=== PATIENT | female | born 1945 | race Caucasian/White ===

== ENCOUNTER 2020-10-13 10:30 | Inpatient (IN) | payer MEDICARE, OTHER ==
--- NOTE | 2020-10-13 10:48 | XRAY ---
Indication: Weakness, dizziness, and blurred vision. Stroke. Multiple contiguous axial images obtained through the head without contrast. Comparison: None Age-appropriate global atrophy. No acute intracranial hemorrhage, abnormal extra-axial fluid collection, or mass effect. Fourth ventricle is midline without hydrocephalus. Mckinney-white matter differentiation is preserved. Fourth ventricle is midline without hydrocephalus. Bony calvarium intact. Visualized paranasal sinuses and mastoid air cells are clear. Impression: Atrophy and degenerative micro-ischemia within normal limits. No acute intracranial abnormalities. Follow up CT or MRI may yield further information if there remains clinical concern.
[2020-10-13 11:01] LABS: Absolute Neutrophil Ct (ANC) 6.06 (1.4-6.9); BASOPHIL % 0.1 % (0.0-0.4); Basophil (Absolute #) 0.01 (0-0.4); Eosinophil % 0.7 % (0.00-5.0); Eosinophil (Absolute #) 0.06 (0-0.5); Hematocrit 38.2 % (35-47); Hemoglobin 12.1 gm/dl (12.0-16.0); Lymphocytes % 20.5 % (24.0-44.0); Mean Cell Volume 90.7 fl (78-100); Mean Corpuscular Hemoglobin 28.7 pg (26-32); Mean Corpuscular Hgb Concent. 31.7 g/dl (32-36); Monocyte (Absolute #) 0.45 (0.0-1.3); Monocytes % 5.4 % (0.0-12.0); Neutrophil % 73.3 % (36.0-66.0); Platelet Count 266 K/mm3 (150-450); Red Blood Count 4.21 M/mm3 (4.1-5.4); Red Cell Distribution Width 13.1 % (11.5-14.0); White Blood Count 8.3 K/mm3 (4.0-10.5)
[2020-10-13 11:08] LABS: INR 1.16 (0.8-3.0); PROTIME 13.1 SECONDS (9.95-12.35)
--- NOTE | 2020-10-13 11:09 | ERPHSYRPT ---
- History of Present Illness Time Seen by Provider: 10/13/20 10:45 Source: patient Exam Limitations: no limitations Patient Subjective Stated Complaint: Pt was on her way to [employer] and she suddenly became dizzy and sat in the [place] lot for a few minutes and she tried to stand and she falls towards the left, Triage Nursing Assessment: Pt brought to the ER by a friend, hypertensive, falls to the left side when she stands, denies any numbness, denies any SOB, felt fine this AM, no edema, no facial droop, was able to lift both legs and hold but stated it was much harder for the left than the right to hold up, no difficulties with speech, denies pain Physician History: This is a 74-year-old white female who has a history of hypertension, insulin- dependent diabetes and hypothyroidism. She is a patient of Dr. Bazan. Patient states that approximately 45 minutes to an hour prior to her arrival she noticed some dizziness as well as some left-sided weakness. When she was ambulating she would lean towards the left side. She did not experiencing any kind of pain or head trauma. She has never had anything like this before. Her blood sugar upon arrival to the emergency department is 99. She denies chest pa in. She denies shortness of breath. When lying down, she does not feel weak but when she stands up to walk she continues to lean towards the left side. Timing/Duration: today, hour(s) (1) Severity: mild Character of Deficits: new weakness (Left side), other (Patient did state that there was some associated difficulty in getting her words out approximately an hour ago. This symptom had resolved by the time she had arrived to the emergency department) Deficits: cannot stand, cannot walk Baseline/Normal Cognition: alert oriented x 3 Current Cognition: alert oriented x 3 Associated Symptoms: trouble walking (Patient leaning towards the left), No headache Allergies/Adverse Reactions: insulin lispro [From Humalog] Allergy (Verified 12/27/14 09:17) ciprofloxacin [From Cipro] Adverse Reaction (Verified 12/27/14 09:17) ciprofloxacin HCl [From Cipro] Adverse Reaction (Verified 12/27/14 09:17) penicillin Adverse Reaction (Verified 12/27/14 09:17) Sulfa (Sulfonamide Antibiotics) Adverse Reaction (Verified 12/27/14 09:17) Home Medications: Anastrozole [Arimidex] 1 mg PO DAILY 12/27/14 [History] Bacillus Coagulans/Inulin [Probiotic with Prebiotic Caps] 1 cap PO DAILY 12/27/14 [History] Benazepril HCl [Lotensin] 5 mg PO HS 12/27/14 [History] Cholecalciferol (Vitamin D3) [Vitamin D] 1 tab PO DAILY 12/27/14 [History] Insulin Glargine,Hum.rec.anlog [Lantus Solostar] 60 unit SQ HS 12/27/14 [History] Insulin Glulisine [Apidra Solostar] 20 unit SQ AC 12/27/14 [History] Levothyroxine Sodium 50 Mcg [Synthroid 50 Mcg] 1 tab PO DAILY 12/27/14 [History] Metformin HCl 500 mg [Glucophage 500 MG] 1 tab PO BID 12/27/14 [History] Travel Risk - International Travel Have you traveled outside of the country in past 3 weeks: No - Coronavirus Screening Are you exhibiting any of the following symptoms?: No Close contact with a COVID-19 positive Pt in past 14-21 Days: No - Vaccine Status Have you recieved a Covid-19 vaccination: No - Review of Systems Constitutional: Weakness Eyes: No Symptoms Ears, Nose, & Throat: No Symptoms Respiratory: No Symptoms Cardiac: No Symptoms Abdominal/Gastrointestinal: No Symptoms Genitourinary Symptoms: No Symptoms Musculoskeletal: No Symptoms Skin: No Symptoms Neurological: Dizziness (Has resolved), Gait Changes Psychological: No Symptoms Endocrine: No Symptoms Hematologic/Lymphatic: No Symptoms Immunological/Allergic: No Symptoms All Other Systems: Reviewed and Negative - Past Medical History Pertinent Past Medical History: Yes Neurological History: No Pertinent History ENT History: No Pertinent History Cardiac History: Other Respiratory History: No Pertinent History Endocrine Medical History: Diabetes Type II, Hypothyroidism Musculoskeletal History: No Pertinent History GI Medical History: Colitis, Polyps History: No Pertinent History Psycho-Social History: No Pertinent History Female Reproductive Disorders: Breast Cancer Other Medical History: mirtal valve prolaps, colitis as a child - Past Surgical History Past Surgical History: Yes Neuro Surgical History: No Pertinent History Cardiac: Cardiac Catheterization Respiratory: No Pertinent History Gastrointestinal: No Pertinent History Genitourinary: No Pertinent History Musculoskeletal: No Pertinent History Female Surgical History: Mastectomy, Tubal Ligation Other Surgical History: left mastectomy in 2011 - Social History Smoking Status: Never smoker Exposure to second hand smoke: No Drug Use: none Patient Lives Alone: Yes - Nursing Vital Signs Nursing Vital Signs: Initial Vital Signs Temperature 98.3 F 10/13/20 10:41 Pulse Rate 69 10/13/20 10:41 Blood Pressure 147/61 10/13/20 10:41 O2 Sat by Pulse Oximetry 97 10/13/20 10:41 Pain Scale Pain Intensity 0 - Beatrice Coma Scale Best Eye Response (Beatrice): (4) open spontaneously Best Verbal Response (Millie): (5) oriented Best Motor Response (Beatrice): (6) obeys commands Millie Total: 15 - Physical Exam General Appearance: no apparent distress, alert, anxiety Eye Exam: bilateral eye: normal inspection, PERRL, EOMI Ears, Nose, Throat Exam: normal ENT inspection, moist mucous membranes Neck Exam: normal inspection, non-tender, supple, full range of motion Respiratory: normal breath sounds, lungs clear, airway intact, No chest tenderness, No respiratory distress Cardiovascular: regular rate/rhythm, normal heart sounds, normal peripheral pulses Gastrointestinal: soft, normal bowel sounds, No tenderness Pelvic Exam: not done Rectal Exam: not done Back Exam: normal inspection, normal range of motion, No CVA tenderness, No vertebral tenderness Extremity Exam: normal inspection, normal range of motion, pelvis stable Mental Status: alert, 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 No comparison EKG available.) Ordered Tests: Active Orders 24 hr Category Date Time Status [place] Bottom Maker STAT Care 10/13/20 10:53 Active EKG-ER Only STAT Care 10/13/20 10:52 Active NPO (ED) STAT Care 10/13/20 10:52 Active Pulse Oximetry (ED) STAT Care 10/13/20 10:52 Active HEAD WITHOUT CONTRAST [CT] Stat Exams 10/13/20 10:31 Completed MRI BRAIN W & W/O CONTRAST [MRI] Stat Exams 10/13/20 10:54 Completed CBC W DIFF Stat Lab 10/13/20 10:54 Completed CMP Stat Lab 10/13/20 10:54 Completed PROTIME WITH INR Stat Lab 10/13/20 10:54 Completed T4 (Thyroxine) Stat Lab 10/13/20 Completed TSH [TSH, 3RD Generation] Stat Lab 10/13/20 11:03 Completed UA W/RFX UR CULTURE Stat Lab 10/13/20 13:16 Ordered Medication Summary Generic Name Dose Route Start Last Admin Trade Name Freq PRN Reason Stop Dose Admin Sodium Chloride 1,000 mls @ 100 mls/hr 10/13/20 14:15 10/13/20 14:17 Sodium Chloride 0.9% 1000 Ml IV 11/12/20 14:14 100 mls/hr .Q10H EFFIE Administration Discontinued Medications Generic Name Dose Route Start Last Admin Trade Name Freq PRN Reason Stop Dose Admin Sodium Chloride Confirm 10/13/20 14:07 Sodium Chloride 0.9% 1000 Ml Administered 10/13/20 14:08 Dose 1,000 mls @ ud .ROUTE .STK-MED ONE Ondansetron HCl Confirm 10/13/20 14:07 Zofran 4 Mg/2 Ml Vial Administered 10/13/20 14:08 Dose 4 mg .ROUTE .STK-MED ONE Ondansetron HCl 4 mg 10/13/20 14:15 10/13/20 14:17 Zofran 4 Mg/2 Ml Vial IV 10/13/20 14:16 4 mg STAT ONE Administration Lab/Rad Data: Laboratory Result Diagrams 10/13/20 10:54 10/13/20 10:54 Laboratory Results 10/13/20 10/13/20 10/13/20 Range/Units Unknown 11:03 10:54 WBC (4.0-10.5) K/mm3 RBC (4.1-5.4) M/mm3 Hgb (12.0-16.0) gm/dl Hct (35-47) % MCV (78-100) fl MCH (26-32) pg MCHC (32-36) g/dl RDW (11.5-14.0) % Plt Count (150-450) K/mm3 MPV (7.5-11.0) fl Gran % (36.0-66.0) % Eos # (Auto) (0-0.5) Absolute Lymphs (auto) (1.0-4.6) Absolute Monos (auto) (0.0-1.3) Lymphocytes % (24.0-44.0) % Monocytes % (0.0-12.0) % Eosinophils % (0.00-5.0) % Basophils % (0.0-0.4) % Absolute Granulocytes (1.4-6.9) Basophils # (0-0.4) PT 13.1 H (9.95-12.35) SECONDS INR 1.16 (0.8-3.0) Sodium (137-145) mmol/L Potassium (3.5-5.1) mmol/L Chloride (98-107) mmol/L Carbon Dioxide (22-30) mmol/L Anion Gap (5-15) MEQ/L BUN (7-17) mg/dL Creatinine (0.52-1.04) mg/dL Estimated GFR ML/MIN Glucose (74-106) mg/dL Calcium (8.4-10.2) mg/dL Total Bilirubin (0.2-1.3) mg/dL AST (14-36) U/L ALT (0-35) U/L Alkaline Phosphatase (38-126) U/L Serum Total Protein (6.3-8.2) g/dL Albumin (3.5-5.0) g/dL Thyroxine (T4) 12.1 H (5.53-10.96) ug/dL TSH 3rd Generation 0.525 (0.47-4.68) mIU/L 10/13/20 10/13/20 Range/Units 10:54 10:54 WBC 8.3 (4.0-10.5) K/mm3 RBC 4.21 (4.1-5.4) M/mm3 Hgb 12.1 (12.0-16.0) gm/dl Hct 38.2 (35-47) % MCV 90.7 (78-100) fl MCH 28.7 (26-32) pg MCHC 31.7 L (32-36) g/dl RDW 13.1 (11.5-14.0) % Plt Count 266 (150-450) K/mm3 MPV 10.0 (7.5-11.0) fl Gran % 73.3 H (36.0-66.0) % Eos # (Auto) 0.06 (0-0.5) Absolute Lymphs (auto) 1.70 (1.0-4.6) Absolute Monos (auto) 0.45 (0.0-1.3) Lymphocytes % 20.5 L (24.0-44.0) % Monocytes % 5.4 (0.0-12.0) % Eosinophils % 0.7 (0.00-5.0) % Basophils % 0.1 (0.0-0.4) % Absolute Granulocytes 6.06 (1.4-6.9) Basophils # 0.01 (0-0.4) PT (9.95-12.35) SECONDS INR (0.8-3.0) Sodium 138 (137-145) mmol/L Potassium 3.8 (3.5-5.1) mmol/L Chloride 101 (98-107) mmol/L Carbon Dioxide 30 (22-30) mmol/L Anion Gap 11.1 (5-15) MEQ/L BUN 18 H (7-17) mg/dL Creatinine 1.01 (0.52-1.04) mg/dL Estimated GFR 56.9 ML/MIN Glucose 107 H (74-106) mg/dL Calcium 9.7 (8.4-10.2) mg/dL Total Bilirubin 0.50 (0.2-1.3) mg/dL AST 27 (14-36) U/L ALT 18 (0-35) U/L Alkaline Phosphatase 60 (38-126) U/L Serum Total Protein 7.4 (6.3-8.2) g/dL Albumin 3.9 (3.5-5.0) g/dL Thyroxine (T4) (5.53-10.96) ug/dL TSH 3rd Generation (0.47-4.68) mIU/L - Progress Progress: improved, re-examined Progress Note: 10/13/20 14:21 The CAT scan of the head without contrast shows no acute intracranial abnormality. The MRI of the brain with and without contrast shows a tiny focus of acute microischemia left cerebellum. There is atrophy present but within normal limits for the patient's age. The remaining MRI of the brain with contrast exam is negative. At 1350 I spoke with neurologist Dr[address] Aguilera at [facility] in [facility]. He reviewed the CAT scan of the head as well as MRI with and without contrast of this patient's brain. He recommended no thrombolytics at this time. He also stated that there was no treatment options that he can provide in this patient at this time. He also recommended that the patient be admitted for basic stroke work-up including carotid Doppler and echocardiogram. He felt the patient was safe to stay at our local institution. I then contacted Dr. Ryan, the patient's primary care physician. I reviewed the patient hist ory, physical findings, results of radiographic studies and laboratory studies as well as EKG findings. I also reviewed with her Dr. Aguilera's evaluation and recommendations. She feels comfortable keeping the patient here and doing the basic stroke work-up and starting physical therapy and rehab. I reviewed the options with the patient and her son. Patient prefers to stay at this hospital for management. Dr. Aguilera, [facility] neurologist, stated that if the patient worsens clinically, they are to notify him. 10/13/20 14:28 Discussed with : Kaya Counseled pt/family regarding: lab results, diagnosis, need for follow-up, rad results - Departure Departure Disposition: Home Clinical Impression: Cerebellar stroke, acute Condition: Stable Critical Care Time: Yes Critical Care Time(excluding separately billable procedures): Critical 30-74 mins Referrals: JAY RYAN DO [Primary Care Provider] -
[2020-10-13 11:14] LABS: ALBUMIN 3.9 g/dL (3.5-5.0); ANION GAP 11.1 MEQ/L (5-15); BILIRUBIN,TOTAL 0.5 mg/dL (0.2-1.3); Calcium 9.7 mg/dL (8.4-10.2); Creatinine 1 1.01 mg/dL (0.52-1.04); EST GLOMERULAR FILTRATION RATE 56.9 ML/MIN; Potassium 3.8 mmol/L (3.5-5.1); Total Protein 7.4 g/dL (6.3-8.2)
--- NOTE | 2020-10-13 13:03 | XRAY ---
Indication: Sudden onset left weakness. Dizziness. Unable to stand. Sagittal, coronal, and axial MRI brain performed using pre and post T1, T2, FLAIR, diffusion, and ADC sequences. 15 cc Dotarem contrast views. Comparison: None Age-appropriate global atrophy. No acute intracranial hemorrhage, abnormal extra-axial fluid collection, or mass effect. Diffusion images demonstrates 2 x 11 mm linear focus of restricted signal left cerebellum favoring acute micro-ischemia. No other focal restricted signal. Following gadolinium, there is no abnormal enhancing intra or extra-axial mass. Fourth ventricle is midline without hydrocephalus. 7/8 cranial nerve complex bilaterally symmetric. Normal flow-void signal within the major intracerebral circulation. Normal appearing craniocervical junction and sella turcica. Paranasal sinuses are clear. Impression: 1. Tiny focus acute micro-ischemia left cerebellum. 2. Atrophy within normal limits for patient's age. 3. Remaining MRI brain with contrast exam is negative.
[2020-10-13] MEDS ORDERED: Zofran 4 MG/2 ML VIAL ONE (14:07)
[2020-10-13] MEDS ORDERED: Sodium Chloride 0.9% 1000 ML 1,000 ML ONE (14:07)
[2020-10-13] MEDS ORDERED: Zofran 4 MG/2 ML VIAL IV ONE (14:15)
[2020-10-13] MEDS ORDERED: Sodium Chloride 0.9% 1000 ML 1,000 ML IV SCH (14:15)
[2020-10-13 14:49] LABS: Appearance CLOUDY (CLEAR); Bacteria MODERATE /HPF (NEGATIVE); Bilirubin NEGATIVE (NEGATIVE); Blood NEGATIVE Ery/ul (0-5); Epithelial Cells FEW /HPF (FEW); Glucose NEGATIVE (NEGATIVE); Ketones NEGATIVE (NEGATIVE); Leukocyte Esterase LARGE (NEGATIVE); Mucus SLIGHT /HPF (NEGATIVE); Nitrite POSITIVE (NEGATIVE); Protein,Urine Dip NEGATIVE (Negative); Specific Gravity 1.012 (1.005-1.025); Urobilinogen NEGATIVE mg/dL (0-1); WBC 26-50 /HPF (0-5)
[2020-10-13] MEDS ORDERED: ROCEPHIN 1 Gm-D5w 50 ml Bag** 1 G/50 ML IVPB IV STA (14:54)
[2020-10-13] MEDS ORDERED: ROCEPHIN 1 Gm-D5w 50 ml Bag** 1 G/50 ML IVPB IV ONE (15:09)
[2020-10-13 15:20] LABS: INFLUENZA A NEGATIVE (NEGATIVE); INFLUENZA B NEGATIVE (NEGATIVE); RESPIRATORY SYNCTIAL VIRUS NEGATIVE (Negative)
[2020-10-13] MEDS ORDERED: TYLENOL 325 MG PO PRN (15:48)
[2020-10-13] MEDS ORDERED: Zofran 4 MG/2 ML VIAL IV PRN (15:48)
[2020-10-13] MEDS ORDERED: INSULIN LISPRO 7 UNIT SQ PRN (16:56)
--- NOTE | 2020-10-13 17:20 | XRAY ---
Indication: Acute cerebellar stroke. Two-dimensional sonogram and color Doppler imaging of the carotid arteries of the neck performed. Comparison: None Examination of the right carotid circulation demonstrates widely patent common carotid, carotid bulb, internal carotid, and external carotid arteries. Distal internal carotid artery is tortuous. PSV of the CCA is 86 cm/s. PSV of the ICA is 89 cm/s. ICA/CCA ratio is 1.0. Normal antegrade vertebral artery flow. Examination of the left carotid circulation demonstrates tortuous common carotid artery. Widely patent common carotid, carotid bulb, internal carotid, and external carotid arteries. Distal internal carotid artery is tortuous. PSV of the CCA is 118 cm/s. PSV of the ICA is 85 cm/s. ICA/CCA ratio is 0.7. Normal antegrade vertebral artery flow. Impression: Widely patent carotid arteries of the neck. Velocity measurements and ratios are negative for hemodynamically significant flow limiting stenosis.
[2020-10-13] MEDS ORDERED: MEDICATION INTERVENTION MC SCH (17:30)
[2020-10-13] MEDS ORDERED: ENOXAPARIN SODIUM SQ SCH (18:45)
[2020-10-13] MEDS ORDERED: PROMETHEGAN RC PRN (19:38)
[2020-10-13] MEDS ORDERED: NON-FORMULARY ITEM (Dorzolamide Hcl/Pf [Dorzolamide 2% Eye Drop] 1 DROP) OP SCH (22:00)
[2020-10-13] MEDS ORDERED: NON-FORMULARY ITEM (Latanoprost/Pf [Latanoprost 0.005% Eye Drop] 1 DROP) OP SCH (22:00)
[2020-10-13] MEDS ORDERED: INSULIN GLARGINE HUM REC ANLOG 60 UNIT SQ SCH (22:00)
[2020-10-13] MEDS ORDERED: BENAZEPRIL HCL 10 MG PO SCH (22:00)
[2020-10-14] MEDS: Lotensin 10 MG PO SCH ×2 (00:12→21:21)
[2020-10-14] MEDS: Lantus Insulin SQ SCH ×2 (00:12→21:22)
[2020-10-14] MEDS: Xalatan OP SCH ×2 (00:13→21:24)
[2020-10-14 05:30] LABS: Absolute Neutrophil Ct (ANC) 11.03 (1.4-6.9); BASOPHIL % 0.1 % (0.0-0.4); Basophil (Absolute #) 0.01 (0-0.4); Eosinophil % 0.4 % (0.00-5.0); Eosinophil (Absolute #) 0.06 (0-0.5); Hematocrit 41.2 % (35-47); Lymphocyte (Absolute #) 1.66 (1.0-4.6); Lymphocytes % 12.1 % (24.0-44.0); Mean Cell Volume 91.2 fl (78-100); Mean Corpuscular Hemoglobin 28.8 pg (26-32); Mean Corpuscular Hgb Concent. 31.6 g/dl (32-36); Mean Platelet Volume 10.5 fl (7.5-11.0); Monocyte (Absolute #) 0.98 (0.0-1.3); Monocytes % 7.1 % (0.0-12.0); Neutrophil % 80.3 % (36.0-66.0); Platelet Count 248 K/mm3 (150-450); Red Blood Count 4.52 M/mm3 (4.1-5.4); Red Cell Distribution Width 13.2 % (11.5-14.0); White Blood Count 13.7 K/mm3 (4.0-10.5)
[2020-10-14 05:38] LABS: ALBUMIN 3.6 g/dL (3.5-5.0); ANION GAP 12.6 MEQ/L (5-15); BILIRUBIN,TOTAL 0.7 mg/dL (0.2-1.3); Calcium 9.1 mg/dL (8.4-10.2); Creatinine 1 1.07 mg/dL (0.52-1.04); EST GLOMERULAR FILTRATION RATE 53.3 ML/MIN; Total Protein 6.9 g/dL (6.3-8.2)
[2020-10-14] MEDS: SYNTHROID 50 MCG PO SCH (05:44)
[2020-10-14] MEDS: Sodium Chloride 0.9% 1000 ML 1,000 ML IV SCH ×2 (05:45→16:26)
--- NOTE | 2020-10-14 09:22 | PCM.HP ---
History of Present Illness - Chief Complaint Chief Complaint: ACUTE CEREBELLAR STROKE History of Present Illness: is a 74 year old female. Medications & Allergies Home Medications: Home Medication List Benazepril HCl [Lotensin] 10 mg PO HS 12/27/14 [History Confirmed 10/13/20] Cholecalciferol (Vitamin D3) [Vitamin D] 1,000 mg PO DAILY 12/27/14 [History Confirmed 10/13/20] Insulin Glargine,Hum.rec.anlog [Lantus Solostar] 60 unit SQ HS 12/27/14 [History Confirmed 10/13/20] Levothyroxine Sodium 50 Mcg [Synthroid 50 Mcg] 1 tab PO 0600 12/27/14 [History Confirmed 10/13/20] Dorzolamide HCl/Pf [Dorzolamide 2% Eye Drop] 1 drop OP HS 10/13/20 [History Confirmed 10/13/20] Insulin Lispro [Humalog] 0 unit SQ UD PRN 10/13/20 [History Confirmed 10/13/20] Latanoprost/Pf [Latanoprost 0.005% Eye Drop] 1 drop OP HS 10/13/20 [History Con firmed 10/13/20] Magnesium 250 mg PO DAILY 10/13/20 [History Confirmed 10/13/20] Allergies/Adverse Reactions: Allergies Allergy/AdvReac Type Severity Reaction Status Date / Time ciprofloxacin [From Cipro] AdvReac Verified 10/13/20 14:51 ciprofloxacin HCl AdvReac Verified 10/13/20 14:51 [From Cipro] penicillin AdvReac Verified 10/13/20 14:51 Sulfa (Sulfonamide AdvReac Verified 10/13/20 14:51 Antibiotics) - Past Medical History Past Medical History: Yes Neurological History: No Pertinent History ENT History: No Pertinent History Cardiac History: Other Respiratory History: COPD Endocrine Medical History: Diabetes Type II, Hypothyroidism Musculoskelatal History: No Pertinent History GI Medical History: Colitis, Polyps History: No Pertinent History Pyscho-Social History: No Pertinent History Reproductive Disorders: Breast Cancer Comment: mirtal valve prolaps, colitis as a child - Past Surgical History Past Surgical History: Yes Neuro Surgical History: No Pertinent History Cardiac History: Cardiac Catheterization Respiratory Surgery: No Pertinent History GI Surgical History: No Pertinent History Genitourinary Surgical Hx: No Pertinent History Musculskeletal Surgical Hx: No Pertinent History Female Surgical History: Mastectomy, Tubal Ligation Other Surgical History: left mastectomy in 2011 - Social History Smoking Status: Never smoker Exposure to second hand smoke: No Alcohol: None Drug Use: none - Physical Exam Vital Signs: Vital Signs - 24 hr Temp Pulse Resp BP Pulse Ox 10/14/20 08:00 99 F 68 14 100/46 94 L 10/14/20 03:44 98.5 F 79 19 154/68 95 10/14/20 00:00 97.9 F 77 14 120/59 97 10/13/20 19:43 97.6 F 66 19 166/73 98 10/13/20 17:03 97.6 F 66 20 165/74 99 10/13/20 15:59 97.6 F 66 20 165/74 99 10/13/20 15:57 97.6 F 66 20 165/74 99 10/13/20 14:56 59 L 100 10/13/20 14:55 59 L 100 10/13/20 14:30 99 10/13/20 11:01 99 10/13/20 10:41 98.3 F 69 147/61 97 Results - Labs Lab/Micro Results: Lab Results-Last 24 Hours 10/13/20 10/13/20 10/13/20 Range/Units 10:54 10:54 10:54 WBC 8.3 (4.0-10.5) K/mm3 RBC 4.21 (4.1-5.4) M/mm3 Hgb 12.1 (12.0-16.0) gm/dl Hct 38.2 (35-47) % MCV 90.7 (78-100) fl MCH 28.7 (26-32) pg MCHC 31.7 L (32-36) g/dl RDW 13.1 (11.5-14.0) % Plt Count 266 (150-450) K/mm3 MPV 10.0 (7.5-11.0) fl Gran % 73.3 H (36.0-66.0) % Eos # (Auto) 0.06 (0-0.5) Absolute Lymphs (auto) 1.70 (1.0-4.6) Absolute Monos (auto) 0.45 (0.0-1.3) Lymphocytes % 20.5 L (24.0-44.0) % Monocytes % 5.4 (0.0-12.0) % Eosinophils % 0.7 (0.00-5.0) % Basophils % 0.1 (0.0-0.4) % Absolute Granulocytes 6.06 (1.4-6.9) Basophils # 0.01 (0-0.4) PT 13.1 H (9.95-12.35) SECONDS INR 1.16 (0.8-3.0) Sodium 138 (137-145) mmol/L Potassium 3.8 (3.5-5.1) mmol/L Chloride 101 (98-107) mmol/L Carbon Dioxide 30 (22-30) mmol/L Anion Gap 11.1 (5-15) MEQ/L BUN 18 H (7-17) mg/dL Creatinine 1.01 (0.52-1.04) mg/dL Estimated GFR 56.9 ML/MIN Glucose 107 H (74-106) mg/dL POC Glucometer (74 to 106) mg/dL Calcium 9.7 (8.4-10.2) mg/dL Total Bilirubin 0.50 (0.2-1.3) mg/dL AST 27 (14-36) U/L ALT 18 (0-35) U/L Alkaline Phosphatase 60 (38-126) U/L Serum Total Protein 7.4 (6.3-8.2) g/dL Albumin 3.9 (3.5-5.0) g/dL Thyroxine (T4) (5.53-10.96) ug/dL TSH 3rd Generation (0.47-4.68) mIU/L Urine Color (YELLOW) Urine Appearance (CLEAR) Urine pH (5-6) Ur Specific [place] (1.005-1.025) Urine Protein (Negative) Urine Ketones (NEGATIVE) Urine Blood (0-5) Fabian/ul Urine Nitrite (NEGATIVE) Urine Bilirubin (NEGATIVE) Urine Urobilinogen (0-1) mg/dL Ur Leukocyte Esterase (NEGATIVE) Urine WBC (Auto) (0-5) /HPF Urine RBC (Auto) (0-2) /HPF U Epithel Cells (Auto) (FEW) /HPF Urine Bacteria (Auto) (NEGATIVE) /HPF Urine Mucus (Auto) (NEGATIVE) /HPF Urine Culture Reflexed (NO) Urine Glucose (NEGATIVE) mg/dL Influenza Type A Ag (NEGATIVE) Influenza Type B Ag (NEGATIVE) RSV (PCR) (Negative) SARS-CoV-2 (PCR) (NEGATIVE) 10/13/20 10/13/20 10/13/20 Range/Units 11:03 13:16 14:37 WBC (4.0-10.5) K/mm3 RBC (4.1-5.4) M/mm3 Hgb (12.0-16.0) gm/dl Hct (35-47) % MCV (78-100) fl MCH (26-32) pg MCHC (32-36) g/dl RDW (11.5-14.0) % Plt Count (150-450) K/mm3 MPV (7.5-11.0) fl Gran % (36.0-66.0) % Eos # (Auto) (0-0.5) Absolute Lymphs (auto) (1.0-4.6) Absolute Monos (auto) (0.0-1.3) Lymphocytes % (24.0-44.0) % Monocytes % (0.0-12.0) % Eosinophils % (0.00-5.0) % Basophils % (0.0-0.4) % Absolute Granulocytes (1.4-6.9) Basophils # (0-0.4) PT (9.95-12.35) SECONDS INR (0.8-3.0) Sodium (137-145) mmol/L Potassium (3.5-5.1) mmol/L Chloride (98-107) mmol/L Carbon Dioxide (22-30) mmol/L Anion Gap (5-15) MEQ/L BUN (7-17) mg/dL Creatinine (0.52-1.04) mg/dL Estimated GFR ML/MIN Glucose (74-106) mg/dL POC Glucometer (74 to 106) mg/dL Calcium (8.4-10.2) mg/dL Total Bilirubin (0.2-1.3) mg/dL AST (14-36) U/L ALT (0-35) U/L Alkaline Phosphatase (38-126) U/L Serum Total Protein (6.3-8.2) g/dL Albumin (3.5-5.0) g/dL Thyroxine (T4) (5.53-10.96) ug/dL TSH 3rd Generation 0.525 (0.47-4.68) mIU/L Urine Color YELLOW (YELLOW) Urine Appearance CLOUDY (CLEAR) Urine pH 9.0 (5-6) Ur Specific [place] 1.012 (1.005-1.025) Urine Protein NEGATIVE (Negative) Urine Ketones NEGATIVE (NEGATIVE) Urine Blood NEGATIVE (0-5) Fabian/ul Urine Nitrite POSITIVE (NEGATIVE) Urine Bilirubin NEGATIVE (NEGATIVE) Urine Urobilinogen NEGATIVE (0-1) mg/dL Ur Leukocyte Esterase LARGE (NEGATIVE) Urine WBC (Auto) 26-50 (0-5) /HPF Urine RBC (Auto) 3-5 (0-2) /HPF U Epithel Cells (Auto) FEW (FEW) /HPF Urine Bacteria (Auto) MODERATE (NEGATIVE) /HPF Urine Mucus (Auto) SLIGHT (NEGATIVE) /HPF Urine Culture Reflexed YES (NO) Urine Glucose NEGATIVE (NEGATIVE) mg/dL Influenza Type A Ag NEGATIVE (NEGATIVE) Influenza Type B Ag NEGATIVE (NEGATIVE) RSV (PCR) NEGATIVE (Negative) SARS-CoV-2 (PCR) NEGATIVE (NEGATIVE) 10/13/20 10/13/20 10/13/20 Range/Units 16:55 20:28 Unknown WBC (4.0-10.5) K/mm3 RBC (4.1-5.4) M/mm3 Hgb (12.0-16.0) gm/dl Hct (35-47) % MCV (78-100) fl MCH (26-32) pg MCHC (32-36) g/dl RDW (11.5-14.0) % Plt Count (150-450) K/mm3 MPV (7.5-11.0) fl Gran % (36.0-66.0) % Eos # (Auto) (0-0.5) Absolute Lymphs (auto) (1.0-4.6) Absolute Monos (auto) (0.0-1.3) Lymphocytes % (24.0-44.0) % Monocytes % (0.0-12.0) % Eosinophils % (0.00-5.0) % Basophils % (0.0-0.4) % Absolute Granulocytes (1.4-6.9) Basophils # (0-0.4) PT (9.95-12.35) SECONDS INR (0.8-3.0) Sodium (137-145) mmol/L Potassium (3.5-5.1) mmol/L Chloride (98-107) mmol/L Carbon Dioxide (22-30) mmol/L Anion Gap (5-15) MEQ/L BUN (7-17) mg/dL Creatinine (0.52-1.04) mg/dL Estimated GFR ML/MIN Glucose (74-106) mg/dL POC Glucometer 89 101 (74 to 106) mg/dL Calcium (8.4-10.2) mg/dL Total Bilirubin (0.2-1.3) mg/dL AST (14-36) U/L ALT (0-35) U/L Alkaline Phosphatase (38-126) U/L Serum Total Protein (6.3-8.2) g/dL Albumin (3.5-5.0) g/dL Thyroxine (T4) 12.1 H (5.53-10.96) ug/dL TSH 3rd Generation (0.47-4.68) mIU/L Urine Color (YELLOW) Urine Appearance (CLEAR) Urine pH (5-6) Ur Specific [place] (1.005-1.025) Urine Protein (Negative) Urine Ketones (NEGATIVE) Urine Blood (0-5) Fabian/ul Urine Nitrite (NEGATIVE) Urine Bilirubin (NEGATIVE) Urine Urobilinogen (0-1) mg/dL Ur Leukocyte Esterase (NEGATIVE) Urine WBC (Auto) (0-5) /HPF Urine RBC (Auto) (0-2) /HPF U Epithel Cells (Auto) (FEW) /HPF Urine Bacteria (Auto) (NEGATIVE) /HPF Urine Mucus (Auto) (NEGATIVE) /HPF Urine Culture Reflexed (NO) Urine Glucose (NEGATIVE) mg/dL Influenza Type A Ag (NEGATIVE) Influenza Type B Ag (NEGATIVE) RSV (PCR) (Negative) SARS-CoV-2 (PCR) (NEGATIVE) 10/14/20 10/14/20 10/14/20 Range/Units 04:43 04:43 07:29 WBC 13.7 H (4.0-10.5) K/mm3 RBC 4.52 (4.1-5.4) M/mm3 Hgb 13.0 (12.0-16.0) gm/dl Hct 41.2 (35-47) % MCV 91.2 (78-100) fl MCH 28.8 (26-32) pg MCHC 31.6 L (32-36) g/dl RDW 13.2 (11.5-14.0) % Plt Count 248 (150-450) K/mm3 MPV 10.5 (7.5-11.0) fl Gran % 80.3 H (36.0-66.0) % Eos # (Auto) 0.06 (0-0.5) Absolute Lymphs (auto) 1.66 (1.0-4.6) Absolute Monos (auto) 0.98 (0.0-1.3) Lymphocytes % 12.1 L (24.0-44.0) % Monocytes % 7.1 (0.0-12.0) % Eosinophils % 0.4 (0.00-5.0) % Basophils % 0.1 (0.0-0.4) % Absolute Granulocytes 11.03 H (1.4-6.9) Basophils # 0.01 (0-0.4) PT (9.95-12.35) SECONDS INR (0.8-3.0) Sodium 139 (137-145) mmol/L Potassium 4.0 (3.5-5.1) mmol/L Chloride 103 (98-107) mmol/L Carbon Dioxide 27 (22-30) mmol/L Anion Gap 12.6 (5-15) MEQ/L BUN 16 (7-17) mg/dL Creatinine 1.07 H (0.52-1.04) mg/dL Estimated GFR 53.3 ML/MIN Glucose 129 H (74-106) mg/dL POC Glucometer 130 H (74 to 106) mg/dL Calcium 9.1 (8.4-10.2) mg/dL Total Bilirubin 0.70 (0.2-1.3) mg/dL AST 25 (14-36) U/L ALT 17 (0-35) U/L Alkaline Phosphatase 55 (38-126) U/L Serum Total Protein 6.9 (6.3-8.2) g/dL Albumin 3.6 (3.5-5.0) g/dL Thyroxine (T4) (5.53-10.96) ug/dL TSH 3rd Generation (0.47-4.68) mIU/L Urine Color (YELLOW) Urine Appearance (CLEAR) Urine pH (5-6) Ur Specific [place] (1.005-1.025) Urine Protein (Negative) Urine Ketones (NEGATIVE) Urine Blood (0-5) Fabian/ul Urine Nitrite (NEGATIVE) Urine Bilirubin (NEGATIVE) Urine Urobilinogen (0-1) mg/dL Ur Leukocyte Esterase (NEGATIVE) Urine WBC (Auto) (0-5) /HPF Urine RBC (Auto) (0-2) /HPF U Epithel Cells (Auto) (FEW) /HPF Urine Bacteria (Auto) (NEGATIVE) /HPF Urine Mucus (Auto) (NEGATIVE) /HPF Urine Culture Reflexed (NO) Urine Glucose (NEGATIVE) mg/dL Influenza Type A Ag (NEGATIVE) Influenza Type B Ag (NEGATIVE) RSV (PCR) (Negative) SARS-CoV-2 (PCR) (NEGATIVE) Microbiology 10/13/20 13:16 Urine Culture - Preliminary Urine, Void GRAM NEGATIVE ID AND SENSITIVITY PENDING Accuchecks Date 10/14/20 Date 10/13/20 Date 10/13/20 Time 07:29 Time 16:59 Time 16:59 - Radiology Impressions Radiology Exams & Impressions: Radiology Procedures Category Date Time Status CAROTID BILATERAL [US] Stat Exams 10/13/20 15:[address] ANGIOGRAPHY NECK [CT] Urgent Exams 10/13/20 19:21 Taken CTA HEAD W AND/OR WO CONTRAST [CT] Urgent Exams 10/13/20 18:37 Taken ECHO W/2D AND DOPPLER [US] Stat Exams 10/13/20 15:48 Taken HEAD WITHOUT CONTRAST [CT] Stat Exams 10/13/20 10:31 Completed MRI BRAIN W & W/O CONTRAST [MRI] Stat Exams 10/13/20 10:54 Completed Assessment/Plan (1) Cerebellar stroke, acute Current Visit: Yes Status: Acute Assessment & Plan: segmental occlusion of the distal left vertebral artery per CTA of neck. Teleneurologist advised Lovenox until CTA resulted., now rec d/c Lovenox and start plavix ,rehab for loss of balance. Code(s): I63.9 - CEREBRAL INFARCTION, UNSPECIFIED (2) Loss of balance Current Visit: Yes Status: Acute Assessment & Plan: due to acute CVA Code(s): R26.89 - OTHER ABNORMALITIES OF GAIT AND MOBILITY (3) Vomiting Current Visit: Yes Status: Resolved Assessment & Plan: due to CVA,happens upon standing/movement of head and torso ,phenergan suppository or oral phenergan Code(s): R11.10 - VOMITING, UNSPECIFIED (4) UTI (urinary tract infection) Current Visit: Yes Status: Acute Assessment & Plan: received Rocephin 2 doses then dc'd ,awaiting final culture for oral. Patient has Hx Cdiff. Code(s): N39.0 - URINARY TRACT INFECTION, SITE NOT SPECIFIED (5) Hx of Clostridium difficile infection Current Visit: Yes Status: Resolved Code(s): Z86.19 - PERSONAL HISTORY OF OTHER INFECTIOUS AND PARASITIC DISEASES
--- NOTE | 2020-10-14 09:37 | XRAY ---
Indication: Left cerebellar stroke. Dizziness and loss of balance. Conventional contrast enhanced CTA neck performed using 80 cc Isovue 370 contrast. Two-dimensional sagittal and coronal reformatted images obtained. Additional 3-dimensional reformatted images obtained using a separate workstation. Comparison: None Visualized aortic arch is normal in course and caliber with normal patent branching right brachiocephalic, left common carotid, and left subclavian arteries. Examination of the right carotid circulation demonstrates widely patent common carotid artery. At the level of the bulb, there is mild eccentric heterogeneous plaquing extending into the origin of the internal carotid artery producing less than 50% stenosis. Remaining external carotid and more distal internal carotid arteries are normal in CTA appearance. Examination of the left carotid circulation demonstrates widely patent common carotid artery. At the level of the bulb, there is mild eccentric calcified plaquing producing less than 50% stenosis. Remaining internal and external carotid arteries are normal in CTA appearance. Right vertebral artery is normal in course and caliber and widely patent with normal branching posterior inferior cerebellar artery. Left vertebral artery is also widely patent to the level of C1 where the V4 segment demonstrates focal occlusion. There is reconstitution of the distal most left vertebral artery to supply the left posterior inferior cerebellar artery. CTA head reported separately. Visualized soft tissues demonstrates small sub-centimeter cervical lymph nodes bilaterally. Parotid and submandibular glands are bilaterally symmetric. Supra and infraglottic airway widely patent. Osseous structures intact with minimal multilevel cervical degenerative spondylosis. Lung apices are clear. Impression: 1. Occlusion distal left vertebral artery, V4 segment as detailed. Widely patent right vertebral artery. 2. Carotid arteries of the neck demonstrate mild arteriosclerotic plaquing bilaterally without critical stenosis/obstruction. Comment: Preliminary interpretation was made by [facility]. No critical discrepancy.
--- NOTE | 2020-10-14 09:39 | XRAY ---
Indication: Left cerebellar stroke. Dizziness and loss of balance. Conventional contrast enhanced CTA head performed using 80 cc Isovue 370 contrast. Two-dimensional sagittal and coronal reformatted images obtained. Additional 3-dimensional reformatted images obtained using a separate workstation. Comparison: None CTA neck reported separately. Distal internal carotid arteries demonstrates minimal arteriosclerotic calcifications involving the parasellar segments, right greater than left. No critical stenosis, obstruction, or AV malformation. Normal carotid terminus with normal branching A1 and M1 segments bilaterally. More distal anterior, middle cerebral, anterior communicating, and posterior communicating arteries are normal in CTA appearance. Basilar artery is normal in course and caliber with normal branching posterior cerebral and superior cerebellar arteries bilaterally. Venous drainage/sinuses are unremarkable. Remaining whole brain is negative for abnormal enhancing intra or extra-axial mass. Impression: 1. Minimal arteriosclerotic calcifications distal internal carotid arteries bilaterally. 2. Remaining CTA head with contrast exam is negative. Comment: Preliminary interpretation was made by [facility]. No critical discrepancy.
[2020-10-14] MEDS ORDERED: NON-FORMULARY ITEM (Magnesium [Magnesium] 250 MG) PO SCH (10:00)
[2020-10-14] MEDS ORDERED: ROCEPHIN 1 Gm-D5w 50 ml Bag** 1 G/50 ML IVPB IV SCH (10:00)
--- NOTE | 2020-10-14 10:11 | ECHO ---
Transthoracic echocardiographic examination and color Doppler was done on 10/13/2020. INDICATION: Acute cerebellar stroke. IMPRESSION: 1) NO REGIONAL WALL MOTION ABNORMALITY. ESTIMATED GLOBAL LEFT VENTRICULAR EJECTION FRACTION OF AROUND 60%. 2) MODERATE MITRAL REGURGITATION. 3) AORTIC VALVE STENOSIS WITH A PEAK TRANSAORTIC GRADIENT OF 30 MM OF MERCURY AND MEAN GRADIENT IS 17 MM OF MERCURY. 4) MODERATE TRICUSPID REGURGITATION. RIGHT VENTRICULAR SYSTOLIC PRESSURE OF 51 MM OF MERCURY SUGGESTIVE OF POSSIBLE PULMONARY HYPERTENSION. 5) TRACE PULMONARY INSUFFICIENCY. 6) LEFT VENTRICULAR HYPERTROPHY. 7) LEFT ATRIAL ENLARGEMENT. The left ventricle is visualized and demonstrated adequate motion of all the segments. Estimated global left ventricular ejection fraction is around 60%. There is left ventricular hypertrophy. The mitral annulus is calcified. There is moderate mitral regurgitation. Left atrium is enlarged. The aortic valve is calcified. The peak gradient across the aortic valve is about 30 mm of Mercury with a mean gradient of 17 mm Hg.The right side chambers are normal. There is moderate tricuspid regurgitation. The right ventricular systolic pressure of 51 mm Hg suggestive of moderate pulmonary hypertension. There is also mild pulmonary insufficiency.
[2020-10-14] MEDS: MAG-OX 400 PO SCH (10:23)
[2020-10-14] MEDS: VITAMIN D PO SCH (10:24)
[2020-10-14] MEDS ORDERED: ENOXAPARIN SODIUM SQ SCH (10:30)
[2020-10-14] MEDS: HUMULIN R SQ PRN ×3 (12:54→21:42)
[2020-10-14] MEDS: ZOCOR 20MG PO SCH (21:21)
[2020-10-14] MEDS: PATIENT OWN MEDICATION OP SCH (21:24)
[2020-10-15] MEDS: SYNTHROID 50 MCG PO SCH (05:33)
[2020-10-15 07:09] LABS: Absolute Neutrophil Ct (ANC) 4.26 (1.4-6.9); BASOPHIL % 0.3 % (0.0-0.4); Basophil (Absolute #) 0.02 (0-0.4); Eosinophil % 2.4 % (0.00-5.0); Eosinophil (Absolute #) 0.18 (0-0.5); Hematocrit 35.4 % (35-47); Hemoglobin 10.8 gm/dl (12.0-16.0); Lymphocyte (Absolute #) 2.65 (1.0-4.6); Lymphocytes % 34.9 % (24.0-44.0); Mean Cell Volume 93.9 fl (78-100); Mean Corpuscular Hemoglobin 28.6 pg (26-32); Mean Corpuscular Hgb Concent. 30.5 g/dl (32-36); Monocyte (Absolute #) 0.48 (0.0-1.3); Monocytes % 6.3 % (0.0-12.0); Neutrophil % 56.1 % (36.0-66.0); Platelet Count 195 K/mm3 (150-450); Red Blood Count 3.77 M/mm3 (4.1-5.4); Red Cell Distribution Width 13.3 % (11.5-14.0); White Blood Count 7.6 K/mm3 (4.0-10.5)
[2020-10-15 07:21] LABS: ANION GAP 10.6 MEQ/L (5-15); Calcium 8.6 mg/dL (8.4-10.2); Creatinine 1 1.15 mg/dL (0.52-1.04); Potassium 4.1 mmol/L (3.5-5.1)
[2020-10-15 07:32] LABS: Risk Ratio 3.5
[2020-10-15] MEDS: VITAMIN D PO SCH (09:17)
[2020-10-15] MEDS: MAG-OX 400 PO SCH (09:17)
[2020-10-15] MEDS: PLAVIX 75 MG Tablet PO SCH (09:17)
[2020-10-15] MEDS: KEFLEX 500 MG PO SCH ×3 (09:17→21:29)
[2020-10-15] MEDS: HUMULIN R SQ PRN ×4 (09:18→21:30)
[2020-10-15] MEDS: ZOCOR 20MG PO SCH (21:29)
[2020-10-15] MEDS: Lotensin 10 MG PO SCH (21:29)
[2020-10-15] MEDS: Lantus Insulin SQ SCH (21:29)
[2020-10-15] MEDS: PATIENT OWN MEDICATION OP SCH (21:31)
[2020-10-15] MEDS: Xalatan OP SCH (21:31)
[2020-10-16] MEDS: SYNTHROID 50 MCG PO SCH (05:54)
[2020-10-16 06:37] LABS: Absolute Neutrophil Ct (ANC) 4.07 (1.4-6.9); BASOPHIL % 0.3 % (0.0-0.4); Basophil (Absolute #) 0.02 (0-0.4); Eosinophil % 3.8 % (0.00-5.0); Eosinophil (Absolute #) 0.27 (0-0.5); Hematocrit 37.4 % (35-47); Hemoglobin 11.6 gm/dl (12.0-16.0); Lymphocyte (Absolute #) 2.21 (1.0-4.6); Lymphocytes % 31.2 % (24.0-44.0); Mean Corpuscular Hemoglobin 28.9 pg (26-32); Mean Platelet Volume 10.5 fl (7.5-11.0); Monocyte (Absolute #) 0.51 (0.0-1.3); Monocytes % 7.2 % (0.0-12.0); Neutrophil % 57.5 % (36.0-66.0); Platelet Count 179 K/mm3 (150-450); Red Blood Count 4.02 M/mm3 (4.1-5.4); Red Cell Distribution Width 13.1 % (11.5-14.0); White Blood Count 7.1 K/mm3 (4.0-10.5)
[2020-10-16] MEDS: VITAMIN D PO SCH (11:13)
[2020-10-16] MEDS: KEFLEX 500 MG PO SCH ×3 (11:14→21:51)
[2020-10-16] MEDS: ECOTRIN 81 MG PO SCH (11:14)
[2020-10-16] MEDS: MAG-OX 400 PO SCH (11:14)
[2020-10-16] MEDS: PLAVIX 75 MG Tablet PO SCH (11:14)
[2020-10-16] MEDS: HUMULIN R SQ PRN ×3 (13:08→21:53)
[2020-10-16] MEDS ORDERED: Apresoline 25 MG TABLET PO PRN (17:16)
[2020-10-16] MEDS: Lantus Insulin SQ SCH (21:51)
[2020-10-16] MEDS: Lotensin 10 MG PO SCH (21:52)
[2020-10-16] MEDS: ZOCOR 20MG PO SCH (21:52)
[2020-10-16] MEDS: Xalatan OP SCH (21:52)
[2020-10-16] MEDS: PATIENT OWN MEDICATION OP SCH (21:52)
[2020-10-17 05:40] LABS: Absolute Neutrophil Ct (ANC) 5.42 (1.4-6.9); BASOPHIL % 0.2 % (0.0-0.4); Basophil (Absolute #) 0.02 (0-0.4); Eosinophil % 3.3 % (0.00-5.0); Eosinophil (Absolute #) 0.28 (0-0.5); Hemoglobin 11.8 gm/dl (12.0-16.0); Lymphocyte (Absolute #) 2.13 (1.0-4.6); Lymphocytes % 25.4 % (24.0-44.0); Mean Cell Volume 91.6 fl (78-100); Mean Corpuscular Hemoglobin 28.4 pg (26-32); Mean Corpuscular Hgb Concent. 31.1 g/dl (32-36); Mean Platelet Volume 10.8 fl (7.5-11.0); Monocyte (Absolute #) 0.55 (0.0-1.3); Monocytes % 6.5 % (0.0-12.0); Neutrophil % 64.6 % (36.0-66.0); Platelet Count 195 K/mm3 (150-450); Red Blood Count 4.15 M/mm3 (4.1-5.4); Red Cell Distribution Width 13.1 % (11.5-14.0); White Blood Count 8.4 K/mm3 (4.0-10.5)
[2020-10-17] MEDS: SYNTHROID 50 MCG PO SCH (07:58)
[2020-10-17] MEDS ORDERED: Dulcolax 10 MG SUPP PR ONE (09:07)
[2020-10-17] MEDS: PLAVIX 75 MG Tablet PO SCH (09:19)
[2020-10-17] MEDS: KEFLEX 500 MG PO SCH (09:19)
[2020-10-17] MEDS: MAG-OX 400 PO SCH (09:19)
[2020-10-17] MEDS: ECOTRIN 81 MG PO SCH (09:19)
[2020-10-17] MEDS: VITAMIN D PO SCH (09:19)
--- NOTE | 2020-10-17 09:50 | PCM.DS ---
Discharge Summary Date of Admission: 10/13/20 15:54 Admitting Physician: JAY RAM DO Consults: Consults on Case 10/13/20 17:35 Tele-Health Consult ROUTINE Primary Care Provider: JAY RAM DO Allergies Allergies ciprofloxacin [From Cipro] Adverse Reaction (Verified 10/13/20 14:51) ciprofloxacin HCl [From Cipro] Adverse Reaction (Verified 10/13/20 14:51) penicillin Adverse Reaction (Verified 10/13/20 14:51) Sulfa (Sulfonamide Antibiotics) Adverse Reaction (Verified 10/13/20 14:51) Hospital Summary - Hospital Course Hospital Course: Patient is a 74yr old female with IDDM2 A1C=7.4% admitted through ER with Dg Cerebellar CVA and UTI with WBC 13,000 . Symptoms of dizziness and loss of balance and vomiting. Improved from a 2 person assist to a stand by assist over the weekend. Patient was on Rocephin IV 2 doses then Keflex po for E.Coli UTI. Patient has Hx Cdif. so stoppiing Keflex and recheck UA today. - Vitals & Intake/Output Vital Signs: Vital Signs Temperature 98.8 F 10/17/20 07:41 Pulse Rate 78 10/17/20 07:41 Respiratory Rate 18 10/17/20 07:41 Blood Pressure 174/77 10/17/20 07:41 O2 Sat by Pulse Oximetry 97 10/17/20 07:41 Intake & Output: Intake & Output 10/14/20 10/15/20 10/16/20 10/17/20 11:59 11:59 11:59 11:59 Intake Total 1932 580 660 200 Output Total 1700 1410 2800 2750 Balance 232 -830 -2140 -2550 Weight 97.8 kg 100.4 kg 99.2 kg - Lab Result Diagrams: 10/17/20 04:42 10/15/20 06:17 Lab Results-Last 24 Hrs: Lab Results-Last 24 Hours 10/16/20 10/16/20 10/16/20 Range/Units 11:34 16:49 21:38 WBC (4.0-10.5) K/mm3 RBC (4.1-5.4) M/mm3 Hgb (12.0-16.0) gm/dl Hct (35-47) % MCV (78-100) fl MCH (26-32) pg MCHC (32-36) g/dl RDW (11.5-14.0) % Plt Count (150-450) K/mm3 MPV (7.5-11.0) fl Gran % (36.0-66.0) % Eos # (Auto) (0-0.5) Absolute Lymphs (auto) (1.0-4.6) Absolute Monos (auto) (0.0-1.3) Lymphocytes % (24.0-44.0) % Monocytes % (0.0-12.0) % Eosinophils % (0.00-5.0) % Basophils % (0.0-0.4) % Absolute Granulocytes (1.4-6.9) Basophils # (0-0.4) POC Glucometer 153 H 199 H 275 H (74 to 106) mg/dL 10/17/20 10/17/20 Range/Units 04:42 07:00 WBC 8.4 (4.0-10.5) K/mm3 RBC 4.15 (4.1-5.4) M/mm3 Hgb 11.8 L (12.0-16.0) gm/dl Hct 38.0 (35-47) % MCV 91.6 (78-100) fl MCH 28.4 (26-32) pg MCHC 31.1 L (32-36) g/dl RDW 13.1 (11.5-14.0) % Plt Count 195 (150-450) K/mm3 MPV 10.8 (7.5-11.0) fl Gran % 64.6 (36.0-66.0) % Eos # (Auto) 0.28 (0-0.5) Absolute Lymphs (auto) 2.13 (1.0-4.6) Absolute Monos (auto) 0.55 (0.0-1.3) Lymphocytes % 25.4 (24.0-44.0) % Monocytes % 6.5 (0.0-12.0) % Eosinophils % 3.3 (0.00-5.0) % Basophils % 0.2 (0.0-0.4) % Absolute Granulocytes 5.42 (1.4-6.9) Basophils # 0.02 (0-0.4) POC Glucometer 118 H (74 to 106) mg/dL Micro Results-Entire Visit: Microbiology 10/13/20 13:16 Urine Culture - Final Urine, Void Escherichia Coli Accuchecks Date 10/17/20 Date 10/16/20 Date 10/16/20 Date 10/16/20 - Procedures and Test Procedures and Tests throughout Hospitalization: Therapy Orders & Screens 10/13/20 15:48 PT Eval & Treat (MD Order) ONCE Reason for Eval:: Acute cerebellar stroke. Gait changespatient leans to the left. Needs evaluation and stroke rehab Diagnosis: Acute cerebellar stroke Final Diagnosis/Problem List - Final Discharge Diagnosis/Problem (1) Cerebellar stroke, acute Current Visit: Yes Status: Acute Code(s): I63.9 - CEREBRAL INFARCTION, UNSPECIFIED (2) Loss of balance Current Visit: Yes Status: Acute Code(s): R26.89 - OTHER ABNORMALITIES OF GAIT AND MOBILITY (3) Vomiting Current Visit: Yes Status: Resolved Code(s): R11.10 - VOMITING, UNSPECIFIED (4) UTI (urinary tract infection) Current Visit: Yes Status: Acute Code(s): N39.0 - URINARY TRACT INFECTION, SITE NOT SPECIFIED (5) Hx of Clostridium difficile infection Current Visit: Yes Status: Resolved Code(s): Z86.19 - PERSONAL HISTORY OF OTHER INFECTIOUS AND PARASITIC DISEASES - Discharge Disposition: Home, Self-Care Condition: Stable Prescriptions: No Action Cholecalciferol (Vitamin D3) [Vitamin D] 1,000 mg PO DAILY Benazepril HCl [Lotensin] 10 mg PO HS Levothyroxine Sodium 50 Mcg [Synthroid 50 Mcg] 1 tab PO 0600 Insulin Glargine,Hum.rec.anlog [Lantus Solostar] 60 unit SQ HS Magnesium 250 mg PO DAILY Dorzolamide HCl/Pf [Dorzolamide 2% Eye Drop] 1 drop OP HS Latanoprost/Pf [Latanoprost 0.005% Eye Drop] 1 drop OP HS Insulin Lispro [Humalog] 0 unit SQ UD PRN PRN Reason: Hyperglycemia Follow up with: JAY RAM DO [Primary Care Provider] -
[2020-10-17 12:36] VITALS: BP 174/73; PULSE 67; O2SAT 96
== END 2020-10-17 10:55 | disposition swing bed (61) | DRG 65 ==
LOC: ED 10:30 → MED SURG 15:46 → UNDOADMOB 15:46 → OBSVTOIN 15:54 → INTOOBSV 15:54
PROVIDERS: ADMIT Family Medicine; ATTEND Family Medicine
DX: I63.9 Cerebral infarction, unspecified (principal); N39.0 Urinary tract infection, site not specified; R42 Dizziness and giddiness; I10 Essential (primary) hypertension; E11.9 Type 2 diabetes mellitus without complications; Z79.4 Long term (current) use of insulin; E03.9 Hypothyroidism, unspecified; Z79.899 Other long term (current) drug therapy; J44.9 Chronic obstructive pulmonary disease, unspecified; Z85.3 Personal history of malignant neoplasm of breast; R26.89 Other abnormalities of gait and mobility; R11.10 Vomiting, unspecified; Z86.19 Personal history of other infectious and parasitic diseases; Z20.828 Contact with and (suspected) exposure to other viral communicable diseases
CPT/HCPCS: 0241U; 36415; 70450; 70496; 70498; 70553; 80048; 80053; 80061; 81001; 82947; 83036; 83721; 84436; 84443; 85025; 85610; 87077; 87086; 87186; 93005; 93041; 93306; 93880; 94760; 94762; 96360; 96365; 96374; 97110; 97161; 97530; 99284; 99291; Q3014; J0696; J1650; J1815; J2405; A9270-GY

== ENCOUNTER 2020-10-17 09:54 | Inpatient (IN) | payer MEDICARE, OTHER ==
[2020-10-17] MEDS ORDERED: Zofran 4 MG/2 ML VIAL IV PRN (11:07)
[2020-10-17] MEDS ORDERED: TYLENOL 325 MG PO PRN (11:07)
[2020-10-17] MEDS ORDERED: PROMETHEGAN RC PRN (11:07)
[2020-10-17] MEDS ORDERED: Apresoline 25 MG TABLET PO PRN (11:07)
[2020-10-17] MEDS ORDERED: Aplisol ID ONE (11:07)
[2020-10-17] MEDS: Lantus Insulin SQ SCH (20:53)
[2020-10-17] MEDS: Lotensin 10 MG PO SCH (20:53)
[2020-10-17] MEDS: HUMULIN R SQ PRN (20:55)
[2020-10-17] MEDS: PATIENT OWN MEDICATION OP SCH (20:56)
[2020-10-17] MEDS: Xalatan OP SCH (20:57)
[2020-10-17] MEDS ORDERED: ZOCOR 20MG PO SCH (22:00)
[2020-10-18] MEDS: SYNTHROID 50 MCG PO SCH (05:34)
[2020-10-18 06:21] LABS: Appearance CLEAR (CLEAR); Bacteria RARE /HPF (NEGATIVE); Bilirubin NEGATIVE (NEGATIVE); Blood NEGATIVE Ery/ul (0-5); Epithelial Cells RARE /HPF (FEW); Glucose NEGATIVE (NEGATIVE); Ketones NEGATIVE (NEGATIVE); Leukocyte Esterase TRACE (NEGATIVE); Mucus SLIGHT /HPF (NEGATIVE); Nitrite NEGATIVE (NEGATIVE); Protein,Urine Dip NEGATIVE (Negative); Specific Gravity 1.006 (1.005-1.025); Urobilinogen NEGATIVE mg/dL (0-1)
[2020-10-18] MEDS: VITAMIN D PO SCH (09:46)
[2020-10-18] MEDS: MAG-OX 400 PO SCH (09:46)
[2020-10-18] MEDS: PLAVIX 75 MG Tablet PO SCH (09:47)
[2020-10-18] MEDS: ECOTRIN 81 MG PO SCH (09:49)
[2020-10-18] MEDS: HUMULIN R SQ PRN ×2 (17:39→21:49)
[2020-10-18] MEDS ORDERED: MILK OF MAGNESIA 30 ML PO PRN (18:55)
[2020-10-18] MEDS: Lotensin 10 MG PO SCH (21:48)
[2020-10-18] MEDS: Lantus Insulin SQ SCH (21:48)
[2020-10-18] MEDS: ZOCOR 20MG PO SCH (21:48)
[2020-10-18] MEDS: PATIENT OWN MEDICATION OP SCH (21:49)
[2020-10-18] MEDS: Xalatan OP SCH (21:50)
[2020-10-19] MEDS: SYNTHROID 50 MCG PO SCH (07:46)
[2020-10-19] MEDS: VITAMIN D PO SCH (10:46)
[2020-10-19] MEDS: ECOTRIN 81 MG PO SCH (10:47)
[2020-10-19] MEDS: MAG-OX 400 PO SCH (10:47)
[2020-10-19] MEDS: PLAVIX 75 MG Tablet PO SCH (10:47)
[2020-10-19] MEDS: HUMULIN R SQ PRN ×3 (12:59→22:31)
[2020-10-19] MEDS: Lantus Insulin SQ SCH (22:30)
[2020-10-19] MEDS: ZOCOR 20MG PO SCH (22:31)
[2020-10-19] MEDS: Lotensin 10 MG PO SCH (22:31)
[2020-10-19] MEDS: PATIENT OWN MEDICATION OP SCH (22:32)
[2020-10-19] MEDS: Xalatan OP SCH (22:32)
[2020-10-20] MEDS: SYNTHROID 50 MCG PO SCH (05:22)
[2020-10-20] MEDS: ECOTRIN 81 MG PO SCH (09:43)
[2020-10-20] MEDS: VITAMIN D PO SCH (09:43)
[2020-10-20] MEDS: PLAVIX 75 MG Tablet PO SCH (09:43)
[2020-10-20] MEDS: MAG-OX 400 PO SCH (09:43)
[2020-10-20] MEDS: HUMULIN R SQ PRN ×3 (12:20→21:43)
[2020-10-20] MEDS: Lantus Insulin SQ SCH (21:43)
[2020-10-20] MEDS: Lotensin 10 MG PO SCH (21:43)
[2020-10-20] MEDS: ZOCOR 20MG PO SCH (21:43)
[2020-10-20] MEDS: PATIENT OWN MEDICATION OP SCH (21:50)
[2020-10-20] MEDS: Xalatan OP SCH (21:50)
[2020-10-21] MEDS: SYNTHROID 50 MCG PO SCH (06:31)
[2020-10-21 07:49] VITALS: BP 130/60; PULSE 81; O2SAT 97
[2020-10-21] MEDS: MAG-OX 400 PO SCH (09:51)
[2020-10-21] MEDS: ECOTRIN 81 MG PO SCH (09:51)
[2020-10-21] MEDS: PLAVIX 75 MG Tablet PO SCH (09:51)
[2020-10-21] MEDS: VITAMIN D PO SCH (09:51)
[2020-10-21] MEDS: HUMULIN R SQ PRN (11:44)
== END 2020-10-21 13:19 | disposition home or self-care (01) | DRG 65 ==
LOC: MED SURG 10:55
PROVIDERS: ADMIT Family Medicine; ATTEND Family Medicine
DX: I63.9 Cerebral infarction, unspecified (principal); N39.0 Urinary tract infection, site not specified; R11.2 Nausea with vomiting, unspecified; Z79.899 Other long term (current) drug therapy; I10 Essential (primary) hypertension; E11.9 Type 2 diabetes mellitus without complications; E03.9 Hypothyroidism, unspecified; J44.9 Chronic obstructive pulmonary disease, unspecified; R26.89 Other abnormalities of gait and mobility
CPT/HCPCS: 81001; 82947; J1815; 97110-GP; A9270-GY

== ENCOUNTER 2020-12-14 10:23 | Emergency (ER) | payer MEDICARE, OTHER ==
--- NOTE | 2020-12-14 10:37 | ERPHSYRPT ---
- History of Present Illness Time Seen by Provider: 12/14/20 10:30 Source: patient Exam Limitations: no limitations Physician History: Patient is a 75-year-old female presents to our ED with complaints of generalized weakness. Patient recently had a stroke. According to patient she had a stroke last month. Patient states her generalized weakness started approximately 1 week ago. Patient states she did not initially seek medical attention because she was away on vacation. However today her roommate advises she come to the ED for an evaluation. Patient denies pain. No nausea or vomiting. No diaphoresis. No headache. No numbness tingling or weakness. Symptoms are mild to moderate in intensity. No specific worsening improving factors. Patient voices no other complaints or concerns at this time. Timing/Duration: week(s) (1 week) Severity: moderate Modifying Factors: Improves With: nothing Associated Symptoms: denies symptoms, No heartburn, No diaphoresis, No cough, No chest pain, No fever, No headaches, No loss of appetite, No syncope, No seizure, No weakness Allergies/Adverse Reactions: ciprofloxacin [From Cipro] Adverse Reaction (Verified 12/14/20 10:27) ciprofloxacin HCl [From Cipro] Adverse Reaction (Verified 12/14/20 10:27) penicillin Adverse Reaction (Verified 12/14/20 10:27) Sulfa (Sulfonamide Antibiotics) Adverse Reaction (Verified 12/14/20 10:27) Home Medications: Benazepril HCl [Lotensin] 10 mg PO HS 12/27/14 [History] Cholecalciferol (Vitamin D3) [Vitamin D] 1,000 mg PO DAILY 12/27/14 [History] Levothyroxine Sodium 50 Mcg [Synthroid 50 Mcg] 1 tab PO 0600 12/27/14 [History] Dorzolamide HCl/Pf [Dorzolamide 2% Eye Drop] 1 drop OP HS 10/13/20 [History] Insulin Lispro [Humalog] 0 unit SQ UD PRN 10/13/20 [History] Latanoprost/Pf [Latanoprost 0.005% Eye Drop] 1 drop OP HS 10/13/20 [History] Magnesium 250 mg PO DAILY 10/13/20 [History] Travel Risk - Vaccine Status Have you recieved a Covid-19 vaccination: No - Review of Systems Constitutional: No Symptoms, No Fever, No Chills Eyes: No Symptoms Ears, Nose, & Throat: No Symptoms Respiratory: No Symptoms, No Cough, No Dyspnea Cardiac: No Symptoms, No Chest Pain, No Edema, No Syncope Abdominal/Gastrointestinal: No Symptoms, No Abdominal Pain, No Nausea, No Vomiting, No Diarrhea Genitourinary Symptoms: No Symptoms, No Dysuria Musculoskeletal: No Symptoms, No Back Pain, No Neck Pain Skin: No Symptoms, No Rash Neurological: No Symptoms, No Dizziness, No Focal Weakness, No Sensory Changes Psychological: No Symptoms Endocrine: No Symptoms Hematologic/Lymphatic: No Symptoms Immunological/Allergic: No Symptoms All Other Systems: Reviewed and Negative - Past Medical History Pertinent Past Medical History: Yes Neurological History: No Pertinent History ENT History: No Pertinent History Cardiac History: Hypertension Respiratory History: COPD Endocrine Medical History: Diabetes Type II, Hypothyroidism Musculoskeletal History: Fractures GI Medical History: Colitis, Polyps History: No Pertinent History Psycho-Social History: No Pertinent History Female Reproductive Disorders: Breast Cancer Other Medical History: R radial head fx and replacement - Past Surgical History Past Surgical History: Yes Neuro Surgical History: No Pertinent History Cardiac: Cardiac Catheterization Respiratory: No Pertinent History Gastrointestinal: No Pertinent History Genitourinary: No Pertinent History Musculoskeletal: No Pertinent History Female Surgical History: Mastectomy, Tubal Ligation Other Surgical History: left mastectomy in 2010 - Social History Smoking Status: Never smoker Exposure to second hand smoke: No Drug Use: none Patient Lives Alone: Yes - Nursing Vital Signs Nursing Vital Signs: Initial Vital Signs O2 Sat by Pulse Oximetry 98 12/14/20 10:24 Pain Scale Pain Intensity 0 - Physical Exam General Appearance: no apparent distress, alert Eye Exam: PERRL/EOMI, eyes nml inspection Ears, Nose, Throat Exam: normal ENT inspection, TMs normal, pharynx normal, mois t mucous membranes Neck Exam: normal inspection, non-tender, supple, full range of motion Respiratory Exam: normal breath sounds, lungs clear, No respiratory distress Cardiovascular Exam: regular rate/rhythm, normal heart sounds, normal peripheral pulses Gastrointestinal/Abdomen Exam: soft, normal bowel sounds, No tenderness, No mass Back Exam: normal inspection, normal range of motion, No CVA tenderness, No vertebral tenderness Extremity Exam: normal inspection, normal range of motion, pelvis stable Neurologic Exam: alert, oriented x 3, cooperative, normal mood/affect, nml cerebellar function, sensation nml, No motor deficits, No intoxicated appearance, No facial droop, No abnormal 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 ST elevation anteriorly.) - CT Exams Head CT Interpretation: Tele-radiologist Report (Continued nonacute senile brain. Appropriate global atrophy and minimal periventricular degenerative microischemia. No acute intracranial hemorrhage abnormal extra-axial fluid collection or mass-effect. Fourth ventricle is midline without hydrocephalus. Mckinney-white matter differentiation preserve) Ordered Tests: Active Orders 24 hr Category Date Time Status Ground Support Equipment Mechanic STAT Care 12/14/20 10:27 Completed EKG-ER Only STAT Care 12/14/20 10:26 Completed IV Insertion STAT Care 12/14/20 10:26 Completed Pulse Oximetry (ED) STAT Care 12/14/20 10:26 Completed HEAD WITHOUT CONTRAST [CT] Stat Exams 12/14/20 10:24 Completed CBC W DIFF Stat Lab 12/14/20 11:15 Completed CMP Stat Lab 12/14/20 11:15 Completed Lactic Acid Stat Lab 12/14/20 10:26 Completed MAGNESIUM Stat Lab 12/14/20 11:15 Completed NT PRO BNP Stat Lab 12/14/20 12:37 Completed TROPONIN Q3H Lab 12/14/20 11:15 Completed TROPONIN Q3H Lab 12/14/20 13:37 Received TROPONIN Q3H Lab 12/14/20 16:30 Ordered TROPONIN Q3H Lab 12/14/20 19:30 Ordered TROPONIN Q3H Lab 12/14/20 22:30 Ordered UA W/RFX UR CULTURE Stat Lab 12/14/20 10:26 Ordered Medication Summary Discontinued Medications Generic Name Dose Route Start Last Admin Trade Name Freq PRN Reason Stop Dose Admin Enoxaparin Sodium 100 mg 12/14/20 13:09 12/14/20 13:17 Enoxaparin Sodium SQ 12/14/20 13:10 100 mg ONCE STA Administration Sodium Chloride 1,000 mls @ 999 mls/hr 12/14/20 12:25 12/14/20 13:01 Sodium Chloride 0.9% 1000 Ml IV 12/14/20 13:25 999 mls/hr .Q1H1M STA Administration Sodium Chloride Confirm 12/14/20 12:57 Sodium Chloride 0.9% 1000 Ml Administered 12/14/20 12:58 Dose 1,000 mls @ ud .ROUTE .STK-MED ONE Nitroglycerin 1 gm 12/14/20 12:25 12/14/20 13:01 Nitro-Bid 2% Ud Packets TOP 12/14/20 12:26 1 gm STAT ONE Administration Nitroglycerin Confirm 12/14/20 12:56 Nitro-Bid 2% Ud Packets Administered 12/14/20 12:57 Dose 1 gm .ROUTE .STK-MED ONE Lab/Rad Data: Laboratory Result Diagrams 12/14/20 11:15 12/14/20 11:15 Laboratory Results 12/14/20 12/14/20 12/14/20 Range/Units 12:37 11:15 11:15 WBC (4.0-10.5) K/mm3 RBC (4.1-5.4) M/mm3 Hgb (12.0-16.0) gm/dl Hct (35-47) % MCV (78-100) fl MCH (26-32) pg MCHC (32-36) g/dl RDW (11.5-14.0) % Plt Count (150-450) K/mm3 MPV (7.5-11.0) fl Gran % (36.0-66.0) % Eos # (Auto) (0-0.5) Absolute Lymphs (auto) (1.0-4.6) Absolute Monos (auto) (0.0-1.3) Lymphocytes % (24.0-44.0) % Monocytes % (0.0-12.0) % Eosinophils % (0.00-5.0) % Basophils % (0.0-0.4) % Absolute Granulocytes (1.4-6.9) Basophils # (0-0.4) Sodium 133 L (137-145) mmol/L Potassium 3.5 (3.5-5.1) mmol/L Chloride 100 (98-107) mmol/L Carbon Dioxide 20 L (22-30) mmol/L Anion Gap 17.2 H (5-15) MEQ/L BUN 43 H (7-17) mg/dL Creatinine 1.75 H (0.52-1.04) mg/dL Estimated GFR 30.1 ML/MIN Glucose 148 H (74-106) mg/dL Lactic Acid (0.4-2.0) Calcium 8.7 (8.4-10.2) mg/dL Magnesium 2.1 (1.6-2.3) mg/dL Total Bilirubin 0.80 (0.2-1.3) mg/dL AST 40 H (14-36) U/L ALT 22 (0-35) U/L Alkaline Phosphatase 81 (38-126) U/L Troponin I 1.990 H* (0.000-0.034) ng/mL NT-Pro-B Natriuret Pep 8800 H (0-1800) pg/mL Serum Total Protein 6.6 (6.3-8.2) g/dL Albumin 3.4 L (3.5-5.0) g/dL 12/14/20 12/14/20 Range/Units 11:15 10:26 WBC 12.6 H (4.0-10.5) K/mm3 RBC 3.81 L (4.1-5.4) M/mm3 Hgb 11.1 L (12.0-16.0) gm/dl Hct 34.4 L (35-47) % MCV 90.3 (78-100) fl MCH 29.1 (26-32) pg MCHC 32.3 (32-36) g/dl RDW 13.6 (11.5-14.0) % Plt Count 159 (150-450) K/mm3 MPV 11.5 H (7.5-11.0) fl Gran % 89.7 H (36.0-66.0) % Eos # (Auto) 0.03 (0-0.5) Absolute Lymphs (auto) 0.45 L (1.0-4.6) Absolute Monos (auto) 0.81 (0.0-1.3) Lymphocytes % 3.6 L (24.0-44.0) % Monocytes % 6.4 (0.0-12.0) % Eosinophils % 0.2 (0.00-5.0) % Basophils % 0.1 (0.0-0.4) % Absolute Granulocytes 11.27 H (1.4-6.9) Basophils # 0.01 (0-0.4) Sodium (137-145) mmol/L Potassium (3.5-5.1) mmol/L Chloride (98-107) mmol/L Carbon Dioxide (22-30) mmol/L Anion Gap (5-15) MEQ/L BUN (7-17) mg/dL Creatinine (0.52-1.04) mg/dL Estimated GFR ML/MIN Glucose (74-106) mg/dL Lactic Acid 1.2 (0.4-2.0) Calcium (8.4-10.2) mg/dL Magnesium (1.6-2.3) mg/dL Total Bilirubin (0.2-1.3) mg/dL AST (14-36) U/L ALT (0-35) U/L Alkaline Phosphatase (38-126) U/L Troponin I (0.000-0.034) ng/mL NT-Pro-B Natriuret Pep (0-1800) pg/mL Serum Total Protein (6.3-8.2) g/dL Albumin (3.5-5.0) g/dL - Progress Progress: improved Progress Note: On an elevated at 1.990. Patient also appears to have acute on chronic renal injury. Patient is currently on Plavix and aspirin. Patient took her Plavix and aspirin this morning. Patient has no chest pain. We are in the process of contacting Dr. Castellano or patient's grease renderer to assess our EKG. we are currently having phone difficulties and consult are unable to return our phone calls at this time. Only working with staff to resolve this issue. 12/14/20 12:17 12/14/20 12:19 12/14/20 12:[address] return call from Dr. Castellano. We are calling [facility] to speak to the on-call grease renderer. IV fluids administered prior to results of BNP. Patient blood pressure was trending downward. Blood pressure precluded nitroglycerin. BNP resulted/observed after patient left the ED. x ray chest not ordered as patient had no chest complaints. No shortness of breath. Lungs were clear. No hypoxia no tachypnea Patient's initial complaint was generalized weakness. 12/14/20 14:33 Counseled pt/family regarding: lab results, diagnosis, rad results - Departure Departure Disposition: Transfer Clinical Impression: NSTEMI (non-ST elevated myocardial infarction), Leukocytosis, Acute renal injury, Normocytic anemia, Elevated brain natriuretic peptide (BNP) level, Abnormal EKG, Elevated troponin Condition: Stable Critical Care Time: No Referrals: JAY RAM DO [Primary Care Provider] -
--- NOTE | 2020-12-14 10:55 | XRAY ---
Indication: Stroke symptoms. Multiple contiguous axial images obtained through the head without contrast. Comparison: October 13, 2020. There remains age-appropriate global atrophy and minimal periventricular degenerative micro-ischemia. No acute intracranial hemorrhage, abnormal extra-axial fluid collection, or mass effect. Fourth ventricle is midline without hydrocephalus. Mckinney-white matter differentiation preserved. Bony calvarium intact. Visualized paranasal sinuses and mastoid air cells are clear. Impression: Continued nonacute senile brain. Again follow-up CT or MRI may yield further information if there remains further clinical concern.
[2020-12-14 11:25] LABS: Absolute Neutrophil Ct (ANC) 11.27 (1.4-6.9); BASOPHIL % 0.1 % (0.0-0.4); Basophil (Absolute #) 0.01 (0-0.4); Eosinophil % 0.2 % (0.00-5.0); Eosinophil (Absolute #) 0.03 (0-0.5); Hematocrit 34.4 % (35-47); Hemoglobin 11.1 gm/dl (12.0-16.0); Lymphocyte (Absolute #) 0.45 (1.0-4.6); Lymphocytes % 3.6 % (24.0-44.0); Mean Cell Volume 90.3 fl (78-100); Mean Corpuscular Hemoglobin 29.1 pg (26-32); Mean Corpuscular Hgb Concent. 32.3 g/dl (32-36); Mean Platelet Volume 11.5 fl (7.5-11.0); Monocyte (Absolute #) 0.81 (0.0-1.3); Monocytes % 6.4 % (0.0-12.0); Neutrophil % 89.7 % (36.0-66.0); Platelet Count 159 K/mm3 (150-450); Red Blood Count 3.81 M/mm3 (4.1-5.4); Red Cell Distribution Width 13.6 % (11.5-14.0); White Blood Count 12.6 K/mm3 (4.0-10.5)
[2020-12-14 11:37] LABS: ALBUMIN 3.4 g/dL (3.5-5.0); ANION GAP 17.2 MEQ/L (5-15); BILIRUBIN,TOTAL 0.8 mg/dL (0.2-1.3); Calcium 8.7 mg/dL (8.4-10.2); Creatinine 1 1.75 mg/dL (0.52-1.04); EST GLOMERULAR FILTRATION RATE 30.1 ML/MIN; MAGNESIUM 2.1 mg/dL (1.6-2.3); Potassium 3.5 mmol/L (3.5-5.1); Total Protein 6.6 g/dL (6.3-8.2)
[2020-12-14 12:20] VITALS: O2SAT 97
[2020-12-14] MEDS ORDERED: NITRO-BID 2% UD PACKETS TOP ONE (12:25)
[2020-12-14] MEDS ORDERED: Sodium Chloride 0.9% 1000 ML 1,000 ML IV STA (12:25)
[2020-12-14] MEDS ORDERED: NITRO-BID 2% UD PACKETS ONE (12:56)
[2020-12-14] MEDS ORDERED: Sodium Chloride 0.9% 1000 ML 1,000 ML ONE (12:57)
[2020-12-14] MEDS ORDERED: ENOXAPARIN SODIUM SQ STA (13:09)
[2020-12-14 13:45] VITALS: BP 128/59; PULSE 102
[2020-12-14 15:43] LABS: BAND 9 % (0.0-2.0); Lymphocytes 3 % (24-44); Monocyte 7 % (0.0-12.0); Neutrophils 81 % (36.0-66.0); Platelet Estimate NORMAL (NORMAL); Total Cells Counted 100
== END 2020-12-14 14:03 | disposition short-term general hospital (02) ==
LOC: ED 10:23
DX: I21.4 Non-ST elevation (NSTEMI) myocardial infarction (principal); N17.0 Acute kidney failure with tubular necrosis; D64.9 Anemia, unspecified; R79.89 Other specified abnormal findings of blood chemistry; R94.31 Abnormal electrocardiogram [ECG] [EKG]; R74.8 Abnormal levels of other serum enzymes; Z79.899 Other long term (current) drug therapy; E03.9 Hypothyroidism, unspecified; E11.9 Type 2 diabetes mellitus without complications; I10 Essential (primary) hypertension; J44.9 Chronic obstructive pulmonary disease, unspecified
CPT/HCPCS: 36000; 36415; 70450; 80053; 83605; 83735; 83880; 84484; 85025; 93005; 93041; 94760; 96372; 99285; J1650; A9270-GY

== ENCOUNTER 2021-12-16 11:31 | Emergency (ER) | payer MEDICARE, OTHER ==
[2021-12-16 11:45] VITALS: BP 140/68; PULSE 81; O2SAT 96
--- NOTE | 2021-12-16 12:00 | ERPHSYRPT ---
- History of Present Illness Source: patient Exam Limitations: no limitations Patient Subjective Stated Complaint: Pt has had a nose bleed for approx 3-4 hours, pt is on blood thinners Triage Nursing Assessment: Pt brought to the ER by her son, hypertensive, denies pain, denies any trauma, has had her nose cauterized before, doesn't appear to be in any distress Physician History: 76 yo wf w L epistaxis x 4 hours. Pt denies trauma and has a h/o epistaxis w cauterization last Fall. She is on Plavix and denies Eliquis/Coumadin/Pradaxa/xaralto. Bleeding elsewhere is denied, along w bruising. Timing/Duration: abrupt onset Severity: mild ENT Location: nose (L nostril) Prearrival Treatment: no prearrival treatment Modifying Factors: Improves With: rest Associated Symptoms: denies symptoms Allergies/Adverse Reactions: ciprofloxacin [From Cipro] Adverse Reaction (Verified 12/16/21 11:45) ciprofloxacin HCl [From Cipro] Adverse Reaction (Verified 12/16/21 11:45) penicillin Adverse Reaction (Verified 12/16/21 11:45) Sulfa (Sulfonamide Antibiotics) Adverse Reaction (Verified 12/16/21 11:45) Home Medications: Levothyroxine Sodium 50 Mcg [Synthroid 50 Mcg] 1 tab PO 0600 12/27/14 [History] Dorzolamide HCl/Pf [Dorzolamide 2% Eye Drop] 1 drop OP HS 10/13/20 [History] Insulin Lispro [Humalog] 0 unit SQ UD PRN 10/13/20 [History] Latanoprost/Pf [Latanoprost 0.005% Eye Drop] 1 drop OP HS 10/13/20 [History] Atorvastatin Calcium 10 mg PO UD 12/16/21 [History] Furosemide [Lasix] 40 mg PO DAILY 12/16/21 [History] Losartan Potassium [Cozaar] 100 mg PO DAILY 12/16/21 [History] Hx Influenza Vaccination/Date Given: No Hx Pneumococcal Vaccination/Date Given: No Travel Risk - International Travel Have you traveled outside of the country in past 3 weeks: No - Coronavirus Screening Are you exhibiting any of the following symptoms?: No Close contact with a COVID-19 positive Pt in past 14-21 Days: No - Vaccine Status Have you recieved a Covid-19 vaccination: No - Review of Systems Constitutional: No Symptoms Eyes: No Symptoms Ears, Nose, & Throat: No Symptoms, Epistaxis Respiratory: No Symptoms Cardiac: No Symptoms Abdominal/Gastrointestinal: No Symptoms Genitourinary Symptoms: No Symptoms Musculoskeletal: No Symptoms Skin: No Symptoms Neurological: No Symptoms Psychological: No Symptoms Endocrine: No Symptoms Hematologic/Lymphatic: No Symptoms Immunological/Allergic: No Symptoms - Past Medical History Pertinent Past Medical History: Yes Neurological History: No Pertinent History ENT History: No Pertinent History Cardiac History: Hypertension Respiratory History: COPD Endocrine Medical History: Diabetes Type II, Hypothyroidism Musculoskeletal History: Fractures GI Medical History: Colitis, Polyps History: No Pertinent History Psycho-Social History: No Pertinent History Female Reproductive Disorders: Breast Cancer Other Medical History: R radial head fx and replacement - Past Surgical History Past Surgical History: Yes Neuro Surgical History: No Pertinent History Cardiac: Cardiac Catheterization Respiratory: No Pertinent History Gastrointestinal: No Pertinent History Genitourinary: No Pertinent History Musculoskeletal: No Pertinent History Female Surgical History: Mastectomy, Tubal Ligation Other Surgical History: left mastectomy in 2010 - Social History Smoking Status: Never smoker Exposure to second hand smoke: No Drug Use: none Patient Lives Alone: Yes - Nursing Vital Signs Nursing Vital Signs: Initial Vital Signs Temperature 96.9 F 12/16/21 11:37 Pulse Rate 81 12/16/21 11:37 Blood Pressure 140/68 12/16/21 11:37 O2 Sat by Pulse Oximetry 96 12/16/21 11:37 Pain Scale Pain Intensity 0 Mildly hypertensive - Physical Exam General Appearance: no apparent distress Eye Exam: bilateral eye: normal inspection, PERRL, EOMI Ear Exam: bilateral ear: auricle normal, canal normal, TM normal Nasal Exam: dried blood (Some dried blood medial L septum after pressure held [id number] nasal clamp/No blood in oropharnyx) Throat Exam: normal, pharynx normal Neck Exam: normal inspection, non-tender, supple, full range of motion, trachea midline Cardiovascular/Respiratory Exam: normal breath sounds, regular rate/rhythm, heart sounds normal Abdominal Exam: non-tender Neurologic Exam: alert, oriented x 3, cooperative, painter helper II-XII nml as tested, normal mood/affect, nml cerebellar function, nml station & gait, sensation nml Skin Exam: normal color, warm, dry SpO2 Interpretation: normal SpO2: 96 O2 Delivery: Room Air - Course Nursing assessment & vital signs reviewed: Yes Ordered Tests: Active Orders 24 hr Category Date Time Status CBC W DIFF Stat Lab 12/16/21 12:10 Completed PROTIME WITH INR Stat Lab 12/16/21 12:10 Completed PTT Stat Lab 12/16/21 12:10 Completed Lab/Rad Data: Laboratory Result Diagrams 12/16/21 12:10 Laboratory Results 12/16/21 12/16/21 Range/Units 12:10 12:10 WBC 6.0 (4.0-10.5) x10^3/uL RBC 3.82 L (4.1-5.4) x10^6/uL Hgb 11.5 L (12.0-16.0) g/dL Hct 35.2 (35-47) % MCV 92.1 (78-100) fL MCH 30.1 (26-32) pg MCHC 32.7 (32-36) g/dL RDW 12.9 (11.5-14.0) % Plt Count 166 (150-450) x10^3/uL MPV 10.4 (7.5-11.0) fL Gran % 62.0 (36.0-66.0) % Immature Gran % (Auto) 0.3 (0.00-0.4) % Nucleat RBC Rel Count 0.0 (0.00-0.1) % Eos # (Auto) 0.15 (0-0.5) x10^3/uL Immature Gran # (Auto) 0.02 (0.00-0.03) x10^3u/L Absolute Lymphs (auto) 1.67 (1.0-4.6) x10^3/uL Absolute Monos (auto) 0.42 (0.0-1.3) x10^3/uL Absolute Nucleated RBC 0.00 (0.00-0.01) x10^3u/L Lymphocytes % 27.9 (24.0-44.0) % Monocytes % 7.0 (0.0-12.0) % Eosinophils % 2.5 (0.00-5.0) % Basophils % 0.3 (0.0-0.4) % Absolute Granulocytes 3.71 (1.4-6.9) x10^3/uL Basophils # 0.02 (0-0.4) x10^3/uL PT 11.3 (9.4-12.5) SECONDS INR 1.07 (0.8-3.0) APTT 24.6 L (25.1-36.5) SECONDS - Progress Progress Note: 12/16/21 19:57 No epistaxis observed in ER Counseled pt/family regarding: lab results, diagnosis, need for follow-up - Departure Departure Disposition: Home Clinical Impression: Epistaxis Condition: Stable Critical Care Time: No Referrals: JAY RAM DO [Primary Care Provider] - Follow up/PCP as directed Instructions: Nosebleeds (DC) Additional Instructions: Do not blow or rub nose for 1 day If bleeding restarts, hold pressure for 24 hours before coming back to ER
[2021-12-16 12:18] LABS: Absolute Neutrophil Ct (ANC) 3.71 x10^3/uL (1.4-6.9); Basophil (Absolute #) 0.02 x10^3/uL (0-0.4); Eosinophil % 2.5 % (0.00-5.0); Eosinophil (Absolute #) 0.15 x10^3/uL (0-0.5); Hematocrit 35.2 % (35-47); Hemoglobin 11.5 g/dL (12.0-16.0); Lymphocyte (Absolute #) 1.67 x10^3/uL (1.0-4.6); Lymphocytes % 27.9 % (24.0-44.0); Mean Cell Volume 92.1 fL (78-100); Mean Corpuscular Hemoglobin 30.1 pg (26-32); Mean Corpuscular Hgb Concent. 32.7 g/dL (32-36); Mean Platelet Volume 10.4 fL (7.5-11.0); Monocyte (Absolute #) 0.42 x10^3/uL (0.0-1.3); Platelet Count 166 x10^3/uL (150-450); Red Blood Count 3.82 x10^6/uL (4.1-5.4); Red Cell Distribution Width 12.9 % (11.5-14.0)
[2021-12-16 12:25] LABS: INR 1.07 (0.8-3.0); PROTIME 11.3 SECONDS (9.4-12.5); PTT 24.6 SECONDS (25.1-36.5)
== END 2021-12-16 13:00 | disposition home or self-care (01) ==
LOC: ED 11:31
DX: R04.0 Epistaxis (principal); Z79.02 Long term (current) use of antithrombotics/antiplatelets; I10 Essential (primary) hypertension; E11.9 Type 2 diabetes mellitus without complications; J44.9 Chronic obstructive pulmonary disease, unspecified; Z79.4 Long term (current) use of insulin; Z79.899 Other long term (current) drug therapy; Z28.310 Unvaccinated for COVID-19
CPT/HCPCS: 36415; 85025; 85610; 85730; 99282